=== PATIENT | female | born 2000 | race African-American/Black ===

== ENCOUNTER 2023-09-30 22:47 | Emergency (ER) | payer OTHER ==
[~2023-09-30] VITALS: Ht 175.3 cm; Wt 63.5 kg
[2023-09-30] MEDS: ACETAMINOPHEN ES 500 MG TABLET PO ONE (23:28)
[2023-09-30] MEDS: IV NS 0.9% 1,000 ML IV ONE (23:28)
[2023-10-01] MEDS ORDERED: PROM118S5 PO (00:10)
[2023-10-01 00:39] VITALS: BP 112/84; TEMP 102.1; O2SAT 99
== END 2023-10-01 00:39 | disposition home or self-care (01) ==
LOC: ER 23:08
DX: B34.9 Viral infection, unspecified (principal); Z20.822 Contact with and (suspected) exposure to COVID-19
CPT/HCPCS: 99283; 96360; 87426; 87804 ×2; J7030